=== PATIENT | female | born 1990 | race Caucasian/White ===

== ENCOUNTER 2020-02-15 17:16 | Outpatient (REF) | payer OTHER, SELFPAY | END 2020-02-15 17:17 | disposition home or self-care (01) | LOC: HO.LAB 17:16 | PROVIDERS: Visit Provider Internal Medicine | DX: Z20.828 Contact with and (suspected) exposure to other viral communicable diseases (principal) | CPT/HCPCS: C9803; U0003 ==

== ENCOUNTER 2020-08-31 16:57 | Emergency (ER) | payer SELFPAY ==
[2020-08-31 17:16] VITALS: BP 154/77; PULSE 83; RESP 18; TEMP 36.8; O2SAT 100; BMI 31.3
--- NOTE | 2020-08-31 18:16 | ED_ITS ---
HPI - Skin/Abscess/Foreign Bdy General Chief complaint: Eye Problems Stated complaint: Eye problem Time Seen by Provider: 08/31/20 18:15 Source: patient Mode of arrival: ambulatory Limitations: no limitations History of Present Illness HPI narrative: Otherwise healthy 30-year-old female who denies any past medical or surgical history she reports for the past several weeks she has been having slight bump the rash sometimes on her exposed parts of her arm and forehead and under the eyes. States is this is most notable after she goes to the beach. States she does not use sunscreen. States she has not had any red rash or skin ordaz consistent with sunburn. States there is no other recent illness or fever. There is no or rash. There is no sore throat. There is no recent sick contacts. States the rash will go away at times myself and sometimes with Benadryl. complaint: rash Onset (ago): week(s) Location: face, LUE and RUE Severity: mild Quality: pruritic (Sometimes mildly) Pain Consistency: intermittent Exacerbating factors: other (Some days she goes to the beach) Context: none Associated symptoms: denies other symptoms Related Data Previous Rx's Medication Instructions Recorded loratadine [Claritin] 10 mg PO DAILY #14 tab 08/31/20 Allergies Allergy/AdvReac Type Severity Reaction Status Date / Time floxacillin Allergy Hypertensio Verified 08/31/20 17:15 n Review of Systems Review of Systems: Constitutional: No Weight loss, No Fever, No Chills, No Night Sweats, No Fatigue, No Malaise ENT/Mouth: No Hearing loss, No Ear Pain, No Nasal Congestion, No Sinus Pain, No Hoarseness, No sore throat, No Rhinorrhea, No Swallowing Difficulty Eyes: No Eye Pain, No Swelling, No Redness, No Foreign Body, No Discharge, No Vision Changes Cardiovascular: No Chest Pain, No SOB, No Dyspnea on Exertion, No Orthopnea, No Edema, No Palpitations Respiratory: No Cough, No Sputum, No Wheezing, No Smoke Exposure, No Dyspnea Gastrointestinal: No Nausea, No Vomiting, No Diarrhea, No Constipation, No abdominal Pain, No Hematochezia, No Melena Genitourinary: no irregular bleeding, No Dysuria, No Urinary Frequency, No Hematuria, No Urinary Incontinence, No Urgency, No Flank Pain, No Urinary Flow Changes, No Hesitancy Musculoskeletal: No joint pain, No Myalgias, No Joint Swelling Skin: No Skin Lesions, as noted per HPI Neuro: No Weakness, No Numbness, No Paresthesias, No Loss of Consciousness, No Dizziness, No Headache Psych: No Anxiety/Panic, No Depression, No SI/HI/AH/VH, No Social Issues Heme/Lymph: No Bruising, No Bleeding,No Lymphadenopathy Endocrine: No Polyuria, No Polydipsia, No Temperature Intolerance Yes all other systems are reviewed and are negative [facility] Past Medical History Medical History (Updated 08/31/20 @ 18:18 by Kwadwo Mustafa NP) Anxiety Social History Social History Advance Directives: Yes Advance Directives Information Provided: Yes Advance Directives on File: No Patient : No Physical Exam Vital Signs: Vital Signs: Last Vital Signs Temp 98.3 F 08/31/20 17:16 Pulse 83 08/31/20 17:16 Resp 18 08/31/20 17:16 BP 154/77 H 08/31/20 17:16 Pulse Ox 100 08/31/20 17:16 Body Mass Index 31.3 Reviewed Const: General: cooperative and healthy appearing; No acute distress or intoxicated appearing Nutritional Appearance: average body habitus Orientation/consciousness: patient oriented x3 HENMT: Head: Yes normal to inspection Ears: hearing grossly normal bilaterally Eyes: General: appearance normal, both eyes and all related structures Visual Adams: normal visual adams by confrontation Neck: Neck: Yes normal visual inspection, No positive Brudzinski's sign, No positive Kernig's sign and No tender Thyroid: Thyroid normal Chest: Chest palpation & inspection: normal inspection of the chest Resp: Effort & Inspection: normal respiratory effort Cardio: Jugular venous distension: no JVD Rhythm: regular rhythm Heart sounds: S1 normal heart sound present and S2 normal heart sound present GI: Inspection: Yes normal to inspection Palpation (GI): Soft to palpation Percussion: Yes normal to percussion Auscultation: normal bowel sounds : General: Yes no CVA tenderness Back/Spine/Pelvis: Back: no CVA tenderness Skin: General skin exam: no rashes or lesions noted Rashes: no rashes Neuro: General: patient oriented x3 Extrem: General: Yes normal to inspection Course Course Course Narrative: Essentially no rash at this time. Occurs mostly on days she was to the beach she does apply sunscreen to her daughter which she applies herself sometimes aside from this no other irritants. I educated her on keeping a log of when this rash does occur, keeping picture diary and starting clear 10. She is also educated on worrisome symptoms follow-up and return instructions. Feels comfortable plan. In no acute distress. Stable for discharge. Discharge Plan Discharge Clinical Impression: Dermatitis Patient Disposition: Home, Self-Care Instructions: Dermatitis (ED) Additional Instructions: Avoid any new lotions, perfumes, makeup products or any other cosmetic products. Avoid any new soaps Wash her clothing with warm water Keep a log of when that rash occurs Take Claritin as prescribed Follow-up with her primary care doctor If this continues to bother you you can ask for referral to agricultural extension agent Thank you Prescriptions: New loratadine [Claritin] 10 mg tablet 10 mg PO DAILY Qty: 14 RF: 1 Referrals: Celia Hooks [facility] E[employer] L[facility]ING CONSULTANT [Primary Care Provider] - 1 week
== END 2020-08-31 18:32 | disposition home or self-care (01) ==
PROVIDERS: Emergency Provider Internal Medicine; PCP Nurse Practitioner Family
DX: L30.9 Dermatitis, unspecified (principal)
CPT/HCPCS: 99283; 99284

== ENCOUNTER 2020-11-11 06:24 | Emergency (ER) | payer OTHER, SELFPAY ==
[2020-11-11 06:32] VITALS: BP 148/84; PULSE 104; RESP 18; TEMP 36.9; O2SAT 98; BMI 24.9
--- NOTE | 2020-11-11 06:37 | ED.URI ---
HPI - URI/Sore Throat General Chief Complaint: Upper Respiratory Symptoms Stated Complaint: COVID Time Seen by Provider: 11/11/20 06:29 Source: patient and EMS Mode of arrival: EMS Limitations: no limitations History of Present Illness MD elicited complaint: other (body aches, known COVID as of Thursday, c/o dysuria and hematuria) Onset (ago): day(s) (2) Consistency: constant Severity: mild Able to tolerate fluids by mouth: Yes Exacerbating factors: other (urination) Relieving factors: nothing Associated symptoms: myalgias, cough and dysuria Treatments prior to arrival: none Related Data Previous Rx's Medication Instructions Recorded loratadine 10 mg tablet (Claritin) 10 mg PO DAILY #14 tab 08/31/20 albuterol sulfate 90 mcg/actuation 2 puff INHALATION QID PRN #6.7 g 11/11/20 aerosol inhaler nitrofurantoin 100 mg PO BID 7 Days #14 cap 11/11/20 monohydrate/macrocrystals 100 mg capsule (Macrobid) Allergies Allergy/AdvReac Type Severity Reaction Status Date / Time floxacillin Allergy Hypertensio Verified 08/31/20 17:15 n Review of Systems Review of Systems: Constitutional : No Fever, No Chills ENT/Mouth : No sore throat, No Rhinorrhea Eyes: No Eye Pain, No Swelling, No Redness Cardiovascular : No Chest Pain, No SOB Respiratory : No Cough, No Sputum, No Wheezing Gastrointestinal : No Nausea, No Vomiting, No Diarrhea, No Constipation, No abdominal Pain Genitourinary : pos Dysuria, pos Urinary Frequency, pos Hematuria, Musculoskeletal : No joint pain, No Myalgias, No Joint Swelling Skin : No Skin Lesions, No rash Neuro : No Weakness, No Numbness, No Dizziness, No Headache PMFSH Past Medical History Attestation statement: The following information was validated with the patient. Medical History Anxiety Social History Social History (Updated 11/11/20 @ 07:12 by Lety Wall DO) Patient Tobacco Use Status: Never used Tobacco Use of substances other than those prescribed or required for medical reasons: No Advance Directives: No Advance Directives Information Provided: Yes Patient : No Physical Exam Vital Signs: Vital Signs: Last Vital Signs Temp 98.4 F 11/11/20 06:32 Pulse 104 H 11/11/20 06:32 Resp 18 11/11/20 06:32 BP 148/84 H 11/11/20 06:32 Pulse Ox 98 11/11/20 06:32 Body Mass Index 24.9 Appearance: Alert. Oriented X3. No acute distress. Eyes: Pupils equal, round and reactive to light. ENT: Pharynx normal. Neck: Normal inspection. Neck supple. CVS: Normal heart rate and rhythm. Pulses normal. Respiratory: No respiratory distress. Breath sounds normal. Abdomen: Soft and non-tender. Skin: Skin warm and dry. Normal skin color. Extremities: No lower extremity edema. Neuro: Oriented X 3. No motor deficit. No sensory deficit. MDM - URI/Sore Throat MDM Narrative Medical decision making narrative: 30 yo female with dx of COVID on thursday denies any issues breathing - 98% on RA, hx of asthma as a child will give INH - did give her precautions to return. She c/o dysuria and some mild blood in urine suspect cystitis - will treat with macrobid, no n/v flank pain. Not toxic stable for DC Lab Data Labs: Lab Results 11/11/20 11/11/20 Range/Units 06:43 06:43 Urine Color YELLOW Urine Appearance CLOUDY Urine pH 6.0 (5.0-8.0) Ur Specific [place] 1.025 (1.005-1.025) Urine Protein 2+ H (NEG-TRACE) MG/DL Urine Glucose (UA) NEG (NEG) MG/DL Urine Ketones 5 (NEG) MG/DL Urine Blood 1+ H (NEG) Urine Nitrite NEG (NEG) Ur Leukocyte Esterase NEG (NEG) Urine Test NEGATIVE (NEGATIVE) Discharge Plan Discharge Clinical Impression: COVID-19, Cystitis Patient Disposition: Home, Self-Care Instructions: Urinary Tract Infection in Women (ED), COVID-19 (Coronavirus Disease 2019) (ED) Additional Instructions: return to ED for any worsening symptoms or concerns monitor your breathing and return for any issues Prescriptions: New albuterol sulfate 90 mcg/actuation HFA aerosol inhaler 2 puff inhalation QID PRN (Reason: shortness of breath or wheezing) Qty: 6.7 RF: 0 nitrofurantoin monohyd/m-cryst [Macrobid] 100 mg capsule 100 mg PO BID 7 Days Qty: 14 RF: 0 No Action loratadine [Claritin] 10 mg tablet 10 mg PO DAILY Qty: 14 RF: 1
[2020-11-11 06:55] LABS: Glucose Urine UA NEG (NEG); Leukocyte Esterase Urine NEG (NEG); Nitrite Urine NEG (NEG); Specific Gravity - Urine 1.025 (1.005-1.025); UACC Culture Trigger NO; UPreg QC Valid YES; Urine Blood 1+ (NEG); Urine Ketones 5 MG/DL (NEG); Urine Pregnancy NEGATIVE (NEGATIVE); Urine Protein 2+ MG/DL (NEG-TRACE)
[2020-11-11 06:56] LABS: Appearance Urine CLOUDY; Color Urine YELLOW
[2020-11-11 07:11] LABS: Amorphous Sediment Urine 1+ /LPF; Bacteria Urine 2+ /LPF; Granular Casts Urine 0-2 /LPF; Squamous Epithelial Cell Urine 1+ /LPF; WBC Urine 0 /HPF (0-4)
[2020-11-11 07:24] LABS: COVID-19 Test Positive (Negative); IDNOW Serial# 9DD0AD1C
== END 2020-11-11 08:31 | disposition home or self-care (01) ==
PROVIDERS: Emergency Provider Emergency Medicine; PCP Internal Medicine
DX: U07.1 COVID-19 (principal); R30.0 Dysuria; Z79.899 Other long term (current) drug therapy
CPT/HCPCS: 36415; 81001; 81025; 87635; 99283

== ENCOUNTER 2020-12-07 01:42 | Emergency (ER) | payer OTHER, SELFPAY ==
[2020-12-07 01:59] VITALS: BP 146/91; PULSE 102; RESP 18; TEMP 36.3; O2SAT 100; BMI 32.4
--- NOTE | 2020-12-07 04:00 | PC.NURSE ---
labs drawn to lab.
[2020-12-07 04:28] LABS: MANUAL DIFF FLAG NO
[2020-12-07 04:30] LABS: Basophils Percent Auto 0.7 % (0-2); Eosinophils Absolute Auto 0.1 X10*3/uL (0.0-0.4); Eosinophils Percent Auto 1.5 % (0-4); Hematocrit 36.4 % (37-47); Hemoglobin 12.4 g/dl (12.0-16.0); Imm Gran Abs Auto 0.01 X10*3/uL (0.00-0.03); Imm Gran Pct Auto 0.2 % (0.0-0.4); Lymphocytes Absolute Auto 1.8 X10*3/uL (1.2-4.9); Lymphocytes Percent Auto 34.3 % (20-40); Mean Corpuscular HGB Conc 34.1 g/dl (31.0-35.0); Mean Corpuscular Hemoglobin 29.4 pg (27.0-33.0); Mean Corpuscular Volume 86.3 fL (80-98); Mean Platelet Volume 9.6 fL (9.4-12.3); Monocytes Absolute Auto 0.5 X10*3/uL (0.1-1.2); Monocytes Percent Auto 9.7 % (2-11); Neutrophils Absolute Auto 2.9 X10*3/uL (2.0-8.3); Neutrophils Percent Auto 53.6 % (45-73); Platelet Count 244 X10*3/uL (160-400); Red Blood Count 4.22 X10*6/uL (4.20-5.50); White Blood Count 5.3 X10*3/uL (4.8-10.8)
[2020-12-07 04:36] LABS: Color Urine YELLOW; Glucose Urine UA NEG (NEG); Leukocyte Esterase Urine NEG (NEG); Nitrite Urine NEG (NEG); UACC Culture Trigger NO; Urine Blood 2+ (NEG); Urine Ketones 15 MG/DL (NEG); Urine Protein 1+ MG/DL (NEG-TRACE)
[2020-12-07 04:41] LABS: Appearance Urine HAZY
[2020-12-07 04:45] LABS: Alanine Aminotransferase 11 U/L (0-31); Albumin Level 3.9 g/dL (3.5-5.0); Alkaline Phosphatase 54 U/L (39-117); Anion Gap 12 (12-20); Aspartate Amino Transferase 19 U/L (5-31); Bilirubin Total 0.2 mg/dL (0.0-1.0); Blood Urea Nitrogen 5 mg/dL (9-16); Calcium 8.7 mg/dL (8.4-10.2); Carbon Dioxide 22 mmol/L (22-29); Chloride 108 mmol/L (96-108); Creatinine Clr Calc Pharmacy 93.3; Estimated Glomerular Filt Rate > 60; Glucose Random 96 mg/dL (60-115); Potassium 4.2 mmol/L (3.3-5.1); Sodium 138 mmol/L (135-145); Total Protein 6.7 g/dL (6.5-8.0)
[2020-12-07 05:03] LABS: Urine Pregnancy NEGATIVE (NEGATIVE)
[2020-12-07 05:04] LABS: UPreg QC Valid YES
[2020-12-07 05:07] LABS: Erythrocyte Sedimentation Rate 26 MM/HR (0-20)
[2020-12-07 05:09] LABS: Bacteria Urine 1+ /LPF; Squamous Epithelial Cell Urine 1+ /LPF; WBC Urine 0-2 /HPF (0-4)
[2020-12-07 05:10] LABS: Mucus Urine 3+ /LPF
--- NOTE | 2020-12-07 05:20 | ED_ITS ---
HPI - General Adult General Chief complaint: General Medical Stated complaint: burning on top of head Time Seen by Provider: 12/07/20 02:42 Source: patient Mode of arrival: ambulatory History of Present Illness HPI narrative: 30-year-old female without significant past medical history presents with burning sensation on the top of her head that is associated with pressure but she denies any hearing or visual changes and denies any gait in stability. She states that this has been ongoing for 3-4 days and has not been associated with any fever, chills, neck stiffness and although she did endorse that she has had left arm and neck numbness this is currently being managed by her primary care provider and has not changed in character or pattern. Related Data Previous Rx's Medication Instructions Recorded loratadine 10 mg tablet (Claritin) 10 mg PO DAILY #14 tab 08/31/20 albuterol sulfate 90 mcg/actuation 1 inh INHALATION QID PRN #6.7 g 11/11/20 aerosol inhaler nitrofurantoin 100 mg PO Q12H 7 Days #14 cap 11/11/20 monohydrate/macrocrystals 100 mg capsule (Macrobid) Allergies Allergy/AdvReac Type Severity Reaction Status Date / Time floxacillin Allergy Hypertensio Verified 08/31/20 17:15 n Review of Systems Review of Systems: Pertinent positives and negatives as stated in HPI 10 point review systems is otherwise negative. PMFSH Past Medical History Source: nursing notes reviewed Medical History Anxiety Social History Social History Patient Tobacco Use Status: Never used Tobacco Advance Directives: No Advance Directives Information Provided: Yes Patient : No Physical Exam Vital Signs: Vital Signs: Last Vital Signs Temp 97.3 F 12/07/20 01:59 Pulse 102 H 12/07/20 01:59 Resp 18 12/07/20 01:59 BP 146/91 H 12/07/20 01:59 Pulse Ox 100 12/07/20 01:59 Body Mass Index 32.4 VITAL SIGNS: Reviewed. GENERAL: Well developed, well nourished, in no acute distress. HEAD: Normocephalic/atraumatic, EYES: PERRLA, EOMI intact without pain, no nystagmus EARS: Ext canals without abnormality, TMs non-bulging and non-erythematous NOSE: Nares patent bilateral OROPHARYNX: no oral lesions noted, posterior pharynx clear and non-erythematous without noted tonsillar enlargement/erythema/exudates NECK: Supple, no adenopathy LUNGS: Normal breath sounds. No adventitious sounds or accessory muscle use. SpO2<100> CARDIOVASCULAR: Regular rate and rhythm without noted murmurs ABDOMEN: Soft, non-tender, non-distended with bowel sounds. MUSCULOSKELETAL: No tenderness, deformities, or effusions noted on gross inspection. EXTREMITIES: No cyanosis, clubbing or edema. SKIN: Inspection of the skin reveals no rashes, ulcerations, jaundice, pallor, or petechiae. NEUROLOGIC: Alert and oriented x 4. Strength and sensation to light touch were grossly intact x 4. Course Course Course Narrative: 30-year-old female with history and clinical presentation consistent with symptoms likely associated with her anxiety and on review of all investigations although there is a noted mildly elevated ESR this is not correlating with any evidence of infection and there is no suggestion of a meningitis or shingles. Patient otherwise appears well and was encouraged to follow-up with her primary care provider. Medical Decision Making Lab Data Result diagrams: 12/07/20 04:22 12/07/20 04:22 Labs: Lab Results 12/07/20 12/07/20 12/07/20 Range/Units 04:22 04:22 04:22 WBC 5.3 (4.8-10.8) X10*3/uL RBC 4.22 (4.20-5.50) X10*6/uL Hgb 12.4 (12.0-16.0) g/dl Hct 36.4 L (37-47) % MCV 86.3 (80-98) fL MCH 29.4 (27.0-33.0) pg MCHC 34.1 (31.0-35.0) g/dl RDW 12.0 (11.0-16.0) % Plt Count 244 (160-400) X10*3/uL MPV 9.6 (9.4-12.3) fL Immature Gran % (Auto) 0.2 (0.0-0.4) % Neut % (Auto) 53.6 (45-73) % Lymph % (Auto) 34.3 (20-40) % [place] % (Auto) 9.7 (2-11) % Eos % (Auto) 1.5 (0-4) % Baso % (Auto) 0.7 (0-2) % Lymph # (Auto) 1.8 (1.2-4.9) X10*3/uL [place] # (Auto) 0.5 (0.1-1.2) X10*3/uL Eos # (Auto) 0.1 (0.0-0.4) X10*3/uL Baso # (Auto) 0.0 (0.0-0.2) X10*3/uL Abs Immat Gran (auto) 0.01 (0.00-0.03) X10*3/uL Absolute Neuts (auto) 2.9 (2.0-8.3) X10*3/uL Absolute Nucleated RBC 0.000 (0.0-0.012) X10*3/uL Nucleated RBC % (auto) 0.0 (0.0-0.2) /100WBC ESR (0-20) MM/HR Sodium (135-145) mmol/L Potassium (3.3-5.1) mmol/L Chloride (96-108) mmol/L Carbon Dioxide (22-29) mmol/L Anion Gap (12-20) BUN (9-16) mg/dL Creatinine (0.5-1.4) mg/dL Estim Creat Clear Calc Estimated GFR Random Glucose (60-115) mg/dL Calcium (8.4-10.2) mg/dL Total Bilirubin (0.0-1.0) mg/dL AST (5-31) U/L ALT (0-31) U/L Alkaline Phosphatase (39-117) U/L Total Protein (6.5-8.0) g/dL Albumin (3.5-5.0) g/dL Urine Color YELLOW Urine Appearance HAZY Urine pH 7.0 (5.0-8.0) Ur Specific [place] 1.020 (1.005-1.025) Urine Protein 1+ H (NEG-TRACE) MG/DL Urine Glucose (UA) NEG (NEG) MG/DL Urine Ketones 15 (NEG) MG/DL Urine Blood 2+ H (NEG) Urine Nitrite NEG (NEG) Ur Leukocyte Esterase NEG (NEG) Urine RBC 76-150 H (0) /HPF Urine WBC 0-2 (0-4) /HPF Ur Squamous Epith Cells 1+ /LPF Urine Bacteria 1+ /LPF Urine Mucus 3+ /LPF Urine Test NEGATIVE (NEGATIVE) 12/07/20 12/07/20 Range/Units 04:22 04:22 WBC (4.8-10.8) X10*3/uL RBC (4.20-5.50) X10*6/uL Hgb (12.0-16.0) g/dl Hct (37-47) % MCV (80-98) fL MCH (27.0-33.0) pg MCHC (31.0-35.0) g/dl RDW (11.0-16.0) % Plt Count (160-400) X10*3/uL MPV (9.4-12.3) fL Immature Gran % (Auto) (0.0-0.4) % Neut % (Auto) (45-73) % Lymph % (Auto) (20-40) % [place] % (Auto) (2-11) % Eos % (Auto) (0-4) % Baso % (Auto) (0-2) % Lymph # (Auto) (1.2-4.9) X10*3/uL [place] # (Auto) (0.1-1.2) X10*3/uL Eos # (Auto) (0.0-0.4) X10*3/uL Baso # (Auto) (0.0-0.2) X10*3/uL Abs Immat Gran (auto) (0.00-0.03) X10*3/uL Absolute Neuts (auto) (2.0-8.3) X10*3/uL Absolute Nucleated RBC (0.0-0.012) X10*3/uL Nucleated RBC % (auto) (0.0-0.2) /100WBC ESR 26 H (0-20) MM/HR Sodium 138 (135-145) mmol/L Potassium 4.2 (3.3-5.1) mmol/L Chloride 108 (96-108) mmol/L Carbon Dioxide 22 (22-29) mmol/L Anion Gap 12 (12-20) BUN 5 L (9-16) mg/dL Creatinine 0.78 (0.5-1.4) mg/dL Estim Creat Clear Calc 93.3 Estimated GFR > 60 Random Glucose 96 (60-115) mg/dL Calcium 8.7 (8.4-10.2) mg/dL Total Bilirubin 0.2 (0.0-1.0) mg/dL AST 19 (5-31) U/L ALT 11 (0-31) U/L Alkaline Phosphatase 54 (39-117) U/L Total Protein 6.7 (6.5-8.0) g/dL Albumin 3.9 (3.5-5.0) g/dL Urine Color Urine Appearance Urine pH (5.0-8.0) Ur Specific [place] (1.005-1.025) Urine Protein (NEG-TRACE) MG/DL Urine Glucose (UA) (NEG) MG/DL Urine Ketones (NEG) MG/DL Urine Blood (NEG) Urine Nitrite (NEG) Ur Leukocyte Esterase (NEG) Urine RBC (0) /HPF Urine WBC (0-4) /HPF Ur Squamous Epith Cells /LPF Urine Bacteria /LPF Urine Mucus /LPF Urine Test (NEGATIVE) Discharge Plan Discharge Clinical Impression: Scalp irritation Patient Disposition: Home, Self-Care Instructions: Anxiety (ED) Additional Instructions: 1. Resume all home medications as prescribed. 2. Please follow-up with your primary care provider for further evaluation regarding your scalp symptoms and further management your chronic condition. Return to the ER for acute worsening of your symptoms. Prescriptions: No Action loratadine [Claritin] 10 mg tablet 10 mg PO DAILY Qty: 14 RF: 1 nitrofurantoin monohyd/m-cryst [Macrobid] 100 mg capsule 100 mg PO Q12H 7 Days Qty: 14 RF: 0 albuterol sulfate 90 mcg/actuation HFA aerosol inhaler 1 inh inhalation QID PRN (Reason: shortness of breath or wheezing) Qty: 6.7 RF: 0
== END 2020-12-07 06:06 | disposition home or self-care (01) ==
PROVIDERS: Emergency Provider Student in an Organized Health Care Education/Training Program; PCP Nurse Practitioner Family
DX: L29.9 Pruritus, unspecified (principal); F41.9 Anxiety disorder, unspecified; Z79.899 Other long term (current) drug therapy
CPT/HCPCS: 36415; 80053; 81001; 81025; 85025; 85652; 99283

== ENCOUNTER 2020-12-24 20:55 | Emergency (ER) | payer OTHER, SELFPAY ==
[2020-12-24 21:34] VITALS: BP 155/84; PULSE 98; RESP 18; TEMP 36.4; O2SAT 97; BMI 37.8
== END 2020-12-24 22:15 | disposition left against medical advice (07) ==
LOC: HO.ED 22:11
PROVIDERS: Emergency Provider Emergency Medicine
DX: M79.602 Pain in left arm (principal); R51.9 Headache, unspecified
CPT/HCPCS: 99281; 99282

== ENCOUNTER 2021-06-23 21:21 | Emergency (ER) | payer OTHER, SELFPAY ==
[2021-06-23 22:22] VITALS: BP 150/92; PULSE 100; RESP 16; TEMP 36.2; O2SAT 99; BMI 32.3
--- NOTE | 2021-06-23 22:52 | PC.NURSE ---
assisted provider in exam of area of concern for patient . no signs and symptoms of infection noted by provider . area appears to be blackhead . plan of care is to follow up with her primary .
--- NOTE | 2021-06-23 23:05 | ED_ITS ---
HPI - Skin/Abscess/Foreign Bdy General Chief complaint: Skin/Abscess/Foreign Body Stated complaint: abscess on right breast Time Seen by Provider: 06/23/21 23:05 Source: patient Mode of arrival: ambulatory History of Present Illness HPI narrative: 31-year-old female without significant past medical history presents with concerns about a ?mole that she has had for approximately 1 year and is concerned because she is noted skin changes. She then reports that she has been able to express material from the area but that it ?came right back?. She denies any associated fever, chills, family history of breast cancer. Related Data Previous Rx's Medication Instructions Recorded loratadine 10 mg tablet (Claritin) 10 mg PO DAILY #14 tab 08/31/20 albuterol sulfate 90 mcg/actuation 1 inh INHALATION QID PRN #6.7 g 11/11/20 aerosol inhaler nitrofurantoin 100 mg PO Q12H 7 Days #14 cap 11/11/20 monohydrate/macrocrystals 100 mg capsule (Macrobid) Allergies Allergy/AdvReac Type Severity Reaction Status Date / Time fluoxetine AdvReac Hypertensio Verified 06/23/21 22:21 n Review of Systems Review of Systems: Pertinent positives and negatives as stated in HPI 10 point review of systems is otherwise negative. PMFSH Past Medical History Source: nursing notes reviewed Medical History Anxiety Social History Social History Patient Tobacco Use Status: Never used Tobacco Advance Directives: No Patient : No Physical Exam Vital Signs: Vital Signs: Last Vital Signs Temp 97.2 F 06/23/21 22:22 Pulse 100 06/23/21 22:22 Resp 16 06/23/21 22:22 BP 150/92 H 06/23/21 22:22 Pulse Ox 99 06/23/21 22:22 BMI result Body Mass Index 32.3 VITAL SIGNS: Reviewed. GENERAL: Well developed, well nourished, in no acute distress. HEAD: Normocephalic/atraumatic EYES: PERRLA, EOMI LUNGS: Normal breath sounds. SpO2<99> BREAST: [employer] [[place]] appears to be black head to medial aspect of right breast with trace erythema CARDIOVASCULAR: Regular rate and rhythm without noted murmurs ABDOMEN: Soft, non-tender, non-distended with bowel sounds. No rigidity. No guarding. No palpable masses or hernias noted NEUROLOGIC: Alert and oriented x 4. Course Course Course Narrative: 31-year-old female with history and clinical presentation consistent with a common blackhead to the medial aspect of the right breast as evidence by her reported history of having expressed material previously and then stating that the material had returned. Patient was reassured but also encouraged to follow- up with her primary care provider if she had any further concerns. Patient was relieved and is otherwise discharged home in stable condition. Discharge Plan Discharge Clinical Impression: Open comedone Patient Disposition: Home, Self-Care Additional Instructions: 1. You have a blackhead, or otherwise known as open comedone, but you are encouraged to follow-up with your primary care provider should you continue to have concerns regarding the area. Do not hesitate to return to the ER for any worsening symptoms. Prescriptions: No Action loratadine [Claritin] 10 mg tablet 10 mg PO DAILY Qty: 14 1RF nitrofurantoin monohyd/m-cryst [Macrobid] 100 mg capsule 100 mg PO Q12H 7 Days Qty: 14 0RF Rx Instructions: must administer with a meal/food albuterol sulfate 90 mcg/actuation HFA aerosol inhaler 1 inh inhalation QID PRN (Reason: shortness of breath or wheezing) Qty: 6.7 0RF
== END 2021-06-23 23:48 | disposition home or self-care (01) ==
PROVIDERS: Emergency Provider Student in an Organized Health Care Education/Training Program
DX: L70.0 Acne vulgaris (principal)
CPT/HCPCS: 99282; 99283

== ENCOUNTER 2021-07-17 00:37 | Emergency (ER) | payer OTHER, SELFPAY ==
--- NOTE | 2021-07-17 | ECG_ITS ---
Test Reason : CP Blood Pressure : / mmHG Vent. Rate : 124 BPM Atrial Rate : 124 BPM P-R Int : 156 ms QRS Dur : 070 ms QT Int : 302 ms P-R-T Axes : 054 041 009 degrees QTc Int : 433 ms Sinus tachycardia Otherwise normal ECG No previous ECGs available Referred By: Generic ED Physician Electronically Signed By:ARLEEN BUENO MD
[2021-07-17 00:50] VITALS: BP 150/89; PULSE 110; RESP 18; TEMP 37.2; O2SAT 100; BMI 32.3
--- NOTE | 2021-07-17 01:08 | ED.GENADULT ---
HPI - General Adult General Chief complaint: Upper Respiratory Symptoms Stated complaint: cough, chest pain, congestion Time Seen by Provider: 07/17/21 00:55 Source: patient Mode of arrival: ambulatory Limitations: no limitations History of Present Illness HPI narrative: Patient is a 31 year old female presenting to the emergency department today with a cough and chest pain secondary to coughing. Patient states that for the last week, she has felt generally unwell with coughing and has been having pain with the cough. Patient denies any dizziness, lightheadedness, abdominal pain, nausea, vomiting, fever, chills, blurry vision, double vision, loss of vision, difficulty breathing, shortness of breath, back pain, night sweats, pain with urination, increased urinary frequency, increased urinary urgency, blood in her urine or stool, syncope or a near syncopal episode, recent trauma or falls, bowel incontinence, bladder incontinence, bowel retention, bladder retention, or any other complaints at this time. Onset (ago): week(s) (1) Treatments prior to arrival: none Related Data Previous Rx's Medication Instructions Recorded loratadine 10 mg tablet (Claritin) 10 mg PO DAILY #14 tab 08/31/20 albuterol sulfate 90 mcg/actuation 1 inh INHALATION QID PRN #6.7 g 11/11/20 aerosol inhaler nitrofurantoin 100 mg PO Q12H 7 Days #14 cap 11/11/20 monohydrate/macrocrystals 100 mg capsule (Macrobid) Allergies Allergy/AdvReac Type Severity Reaction Status Date / Time fluoxetine AdvReac Hypertensio Verified 06/23/21 22:21 n Review of Systems Constitutional: Constitutional: Reports no additional constitutional complaints, Denies chills, Denies fever(s) and Denies night sweats Eyes: Eyes: Reports no additional eye complaints, Denies blurry vision, Denies change in vision, Denies diplopia, Denies eye discharge, Denies loss of vision and Denies eye pain ENT: Denies dizziness Cardiovascular: Cardiovascular: Reports no additional cardiovascular complaints, Denies lightheadedness, Denies Loss of Consciousness and Denies dyspnea Respiratory: Respiratory: Reports no additional respiratory complaints, Reports cough and Denies dyspnea Gastrointestinal: Gastrointestinal: Reports no additional gastrointestinal complaints, Denies abdominal pain, Denies melena, Denies hematochezia, Denies change in bowel habits and Denies change in stool character Genitourinary: Genitourinary: Denies hematuria, Denies urinary frequency, Denies dysuria, Denies urinary incontinence, Denies urinary hesitancy and Denies urinary urgency Musculoskeletal: Musculoskeletal: Reports no additional musculoskeletal complaints, Denies numbness and Denies tingling Neurologic: Denies dizziness, Denies loss of vision, Denies numbness and Denies tingling Psychiatric: Psychiatric: Reports no additional psychiatric complaints Endocrine: Endocrine: Reports no additional endocrine complaints Hematologic/Lymphatic: Hematologic/Lymphatic: Reports no additional hematologic/lymphatic complaints Allergic/Immunologic: Allergic/Immunologic: Reports no additional allergic/immunologic complaints [facility] Past Medical History Attestation statement: The following information was validated with the patient. Source: old records reviewed Medical History Anxiety Social History Social History Patient Tobacco Use Status: Never used Tobacco Advance Directives: No Patient : No Physical Exam ED Vital Signs: Vital Signs - 24 hr 07/17/21 00:50 Temperature 98.9 F Pulse Rate 110 H Respiratory Rate 18 Blood Pressure 150/89 H Pulse Oximetry 100 BMI result Body Mass Index 32.3 Const General: cooperative, no acute distress, alert and awake Nutritional Appearance: well nourished Orientation/consciousness: patient oriented x3 Limitations: no limitations HENMT Head: Yes normal to inspection and Yes atraumatic Ears: hearing grossly normal bilaterally and external ears normal General nose exam: Normal external nose present, no nasal discharge noted and no epistaxis Face and sinus: Yes normal facial exam, No abrasion and No laceration Mouth: Normal oral and palatal mucosa present, no drooling and no muffled voice Eyes General: appearance normal, both eyes and all related structures Periorbital: periorbital findings normal Eyelids: Yes eyelids normal Conjunctivae: conjunctivae normal Pupils: Equal, round and reactive pupils present EOM: EOMs intact bilaterally Neck Neck: Yes normal visual inspection, Yes full ROM and Yes no lymphadenopathy Chest Chest palpation & inspection: normal inspection of the chest Resp Effort & Inspection: normal respiratory effort and able to speak in complete sentences Auscultation: clear to auscultation bilaterally Cardio Rate: regular rate Rhythm: regular rhythm GI Inspection: Yes normal to inspection Neuro General: patient oriented x3 and moves all extremities Cranial nerves: Yes Equal, round and reactive pupils present Cognition (Neuro): normal cognition Motor exam (neuro): 5/5 motor strength present throughout Sensory Exam: Normal double simultaneous stimulation for sensation Coordination: [id number] test normal Extrem General: Yes normal to inspection, Yes full ROM and Yes capillary refill normal Psych Appearance: grossly normal Mental Status: mental status grossly normal Affect: normal affect Attitude: cooperative Thought process: Normal thought process present Thought content: Normal thought content present Insight: Good insight present (Psych) Medical Decision Making MDM Narrative Medical decision making narrative: Patient is a 31 year old female presenting to the emergency department today with a cough. Patient's physical exam was unremarkable. Patient's rapid COVID-19 test was positiveI explained my physical exam findings as well as all test results to the patient. I answered all questions asked by the patient.I stressed the importance of the patient taking her medication as prescribed. I stressed the importance of the patient following up with her primary care provider. I stressed the importance of the patient returning to the emergency department immediately if her symptoms were to worsen or if she were to develop any dizziness, shortness of breath, difficulty breathing, chest pain, blurry vision, loss of vision, nausea, vomiting, abdominal pain, fever, chills, back pain, or any other complaints. Patient verbalized agreement and understanding with this treatment plan and discharge. Differential Diagnosis Differential Diagnosis: COVID-19, cough Medical Records Medical records reviewed: Yes I reviewed the patient's medical records. Lab Data Lab results reviewed: Yes I reviewed the patient's lab results. Labs: Lab Results 07/17/21 Range/Units 00:52 COVID-19 ([facility]) Positive A (Negative) COVID-19 Clin Com See Note Discharge Plan Discharge Clinical Impression: COVID-19 Patient Disposition: Home, Self-Care Instructions: COVID-19 (Coronavirus Disease 2019) (ED) Additional Instructions: Follow up with your primary care provider. Return to the emergency department immediately if your symptoms worsen or if you develop any dizziness, shortness of breath, difficulty breathing, chest pain, blurry vision, loss of vision, nausea, vomiting, abdominal pain, fever, chills, back pain, or any other complaints. Prescriptions: No Action loratadine [Claritin] 10 mg tablet 10 mg PO DAILY Qty: 14 1RF nitrofurantoin monohyd/m-cryst [Macrobid] 100 mg capsule 100 mg PO Q12H 7 Days Qty: 14 0RF Rx Instructions: must administer with a meal/food albuterol sulfate 90 mcg/actuation HFA aerosol inhaler 1 inh inhalation QID PRN (Reason: shortness of breath or wheezing) Qty: 6.7 0RF Stand Alone Forms: Work/School Release Print Language: Togolese
[2021-07-17 01:10] LABS: COVID-19 Test Positive (Negative)
[2021-07-17 01:14] LABS: IDNOW Serial# 16C4AD1C; Influenza A Negative (Negative); Influenza B2 Negative (Negative)
[2021-07-17 01:15] VITALS: BP 146/92; PULSE 112; RESP 16; O2SAT 100
== END 2021-07-17 01:21 | disposition home or self-care (01) ==
PROVIDERS: Emergency Provider Emergency Medicine
DX: U07.1 COVID-19 (principal); R05.9 Cough, unspecified; R07.89 Other chest pain; Z79.899 Other long term (current) drug therapy
CPT/HCPCS: 87502; 87635; 93005; 99283; 99284

== ENCOUNTER 2021-07-17 13:11 | Emergency (ER) | payer OTHER, SELFPAY ==
[2021-07-17 13:51] VITALS: BP 148/87; PULSE 100; RESP 18; TEMP 36.2; O2SAT 100; BMI 32.3
[2021-07-17] MEDS: hydrOXYzine HCL 25 MG TABLET PO (15:24)
--- NOTE | 2021-07-17 15:26 | ED_ITS ---
HPI - Anxiety General Chief Complaint: Anxiety Stated Complaint: anxiety Time Seen by Provider: 07/17/21 15:11 Source: patient Mode of arrival: ambulatory History of Present Illness HPI narrative: 31-year-old female with past medical history of COVID-19 positive as of this morning, anxiety, presenting to the ED complaining of increased anxiety x2 weeks. Admits has been prescribed if you do for medications in the past without relief. Reports anxiety/panic attacks have been increasing. Denies CP/SOB, new or worsening symptoms of COVID MD complaint: anxiety Onset (ago): week(s) Related Data Previous Rx's Medication Instructions Recorded loratadine 10 mg tablet (Claritin) 10 mg PO DAILY #14 tab 08/31/20 albuterol sulfate 90 mcg/actuation 1 inh INHALATION QID PRN #6.7 g 11/11/20 aerosol inhaler nitrofurantoin 100 mg PO Q12H 7 Days #14 cap 11/11/20 monohydrate/macrocrystals 100 mg capsule (Macrobid) hydroxyzine HCl 25 mg tablet 25 mg PO TID PRN 3 Days #5 tab 07/17/21 Allergies Allergy/AdvReac Type Severity Reaction Status Date / Time fluoxetine AdvReac Hypertensio Verified 06/23/21 22:21 n Review of Systems Review of Systems: Constitutional: No Fever, No Chills, No Fatigue, No Malaise ENT/Mouth:No Ear Pain, No Nasal Congestion, No sore throat, No Rhinorrhea, No Swallowing Difficulty Eyes: No Eye Pain, No Swelling, No Redness Cardiovascular: No Chest Pain, No SOB, No Palpitations Respiratory: No Cough, No Sputum, No Dyspnea Gastrointestinal: No Nausea, No Vomiting, No Diarrhea, No Constipation, No Abdominal pain Musculoskeletal: No joint pain, No Myalgias, No Joint Swelling Skin: No Skin Lesions, No rash Neuro: No Weakness, No Dizziness, No Headache Psych: + Anxiety/Panic, No Depression, No SI/HI/AH/VH Yes all other systems are reviewed and are negative [facility] Past Medical History Attestation statement: The following information was validated with the patient. Medical History Anxiety Social History Social History Alcohol intake: current Alcohol intake frequency: holidays/special occasions only Patient Tobacco Use Status: Never used Tobacco Advance Directives: No Advance Directives Information Provided: No Physical Exam Vital Signs: Vital Signs: Last Vital Signs Temp 97.1 F 07/17/21 13:51 Pulse 100 07/17/21 13:51 Resp 18 07/17/21 13:51 BP 148/87 H 07/17/21 13:51 Pulse Ox 100 07/17/21 13:51 BMI result Body Mass Index 32.3 Const: General: cooperative, healthy appearing, no acute distress, alert and awake Orientation/consciousness: patient oriented x3 Limitations: no limitations HEENT: Head: Yes normal to inspection and Yes atraumatic Ears: hearing grossly normal bilaterally General nose exam: Normal external nose present Face and sinus: Yes normal facial exam Eyes: General: appearance normal, both eyes and all related structures EOM: EOMs intact bilaterally Neck: Neck: Yes normal visual inspection and Yes no meningeal signs Resp: Effort & Inspection: normal respiratory effort and no respiratory distress Auscultation: clear to auscultation bilaterally Cardio: Rate: regular rate Skin: Rashes: no rashes Wounds: no wounds Neuro: General: patient oriented x3, tone normal and no meningeal signs Gait exam (Neuro): Normal gait present Extrem: General: Yes normal to inspection MDM - Anxiety MDM Narrative Medical decision making narrative: 31-year-old female with past medical history of COVID-19 positive as of this morning, anxiety, presenting to the ED complaining of increased anxiety x2 weeks. On exam HR of 100 likely from anxiety, NAD/nontoxic appearing, concern for increased anxiety/panic attacks. Will give patient p.o. hydroxyzine, discussed that she needs to follow-up with PCP however will give her short course of Atarax for home. She verbalized understanding Differential Diagnosis Differential diagnosis: Likely panic disorder and acute anxiety Medical Records Attestation: I reviewed the patient's medical records. Lab Data Attestation: I reviewed the patient's lab results. Discharge Plan Discharge Clinical Impression: Acute anxiety Patient Disposition: Home, Self-Care Instructions: Anxiety (ED) Additional Instructions: Hydroxyzine isn't anti anxiety medication, take as needed. It is very important for you to follow-up with her providers/prescriber for further medication herminia mmendations and refills. If you have thoughts of hurting herself or others please return to the emergency department. You have COVID At this time you will be okay for discharge. Please self isolate for 10-14 days. Do not expose yourself to others. You may not go to work or school. Please continue to follow cold instructions and wash your hands frequently. You may take Tylenol / Motrin as directed on the bottle for pain or fever. If you have constant or persistent shortness of breath, fever unresolved with medications, chest pain, or your unable to eat or drink please return to the ED CDC Guidelines for home isolation: - Stay away from others - WEAR A MASK if you are sick AND STAY HOME - Cover your mouth and nose with a tissue when you cough or sneeze. Dispose of tissues in a lined trash can and wash your hands immediately with soap and water for at least 20 seconds. If soap and water are not available, clean hands with alcohol-based hand media services coordinator that contains at least 60% alcohol. - Clean your hands often with soap and water for at least 20 seconds - Avoid touching your eyes, nose and mouth with unwashed hands - Do not share dishes, drinking glasses, cups, eating utensils, towels, or bedding with other people in your home. After using these items, wash them thoroughly with soap and water or put in the munitions handler supervisor. - Clean high-touch surfaces in your isolation area ( sick room and bathroom) every day; let a caregiver clean and disinfect high-touch surfaces in other areas of the home. Clean the area or item with soap and water or another detergent if it is dirty. Then, use a household disinfectant. - Limit contact with pets and animals: If you must care for a pet, wash your hands before and after interacting with them) Prescriptions: New hydroxyzine HCl 25 mg tablet 25 mg PO TID PRN (Reason: anxiety) 3 Days Qty: 5 0RF No Action loratadine [Claritin] 10 mg tablet 10 mg PO DAILY Qty: 14 1RF nitrofurantoin monohyd/m-cryst [Macrobid] 100 mg capsule 100 mg PO Q12H 7 Days Qty: 14 0RF Rx Instructions: must administer with a meal/food albuterol sulfate 90 mcg/actuation HFA aerosol inhaler 1 inh inhalation QID PRN (Reason: shortness of breath or wheezing) Qty: 6.7 0RF Referrals: Physician,Unknown J [Primary Care Provider] -
== END 2021-07-17 15:42 | disposition home or self-care (01) ==
PROVIDERS: Emergency Provider Emergency Medicine
DX: F41.1 Generalized anxiety disorder (principal); Z79.899 Other long term (current) drug therapy
CPT/HCPCS: 99283

== ENCOUNTER 2021-08-03 12:27 | Emergency (ER) | payer OTHER, SELFPAY ==
[2021-08-03 12:29] VITALS: BP 148/89; PULSE 105; RESP 18; TEMP 36.6; O2SAT 100; BMI 32.3
--- NOTE | 2021-08-03 13:52 | ED_ITS ---
HPI - Anxiety General Chief Complaint: Anxiety Stated Complaint: Numbness Tingling Throughout Body Time Seen by Provider: 08/03/21 13:42 Source: patient and old records reviewed Mode of arrival: ambulatory Limitations: no limitations History of Present Illness MD complaint: anxiety Onset (ago): year(s) Symptoms: palpitations, extremity numbness/tingling, perioral numbness/tingling and sense of impending doom Severity: moderate Quality: intermittent Place: home and work History of similar episodes: Yes Provoking factors: none known Relieving factors: medication (atarax does help - she is too scared to take venlafaxine as prescribed prior HTN to fluoxetine) Exacerbating factors: nothing Associated symptoms: palpitations, headaches and weakness Related Data Previous Rx's Medication Instructions Recorded loratadine 10 mg tablet (Claritin) 10 mg PO DAILY #14 tab 08/31/20 albuterol sulfate 90 mcg/actuation 1 inh INHALATION QID PRN #6.7 g 11/11/20 aerosol inhaler nitrofurantoin 100 mg PO Q12H 7 Days #14 cap 11/11/20 monohydrate/macrocrystals 100 mg capsule (Macrobid) hydroxyzine HCl 25 mg tablet 25 mg PO TID PRN 3 Days #5 tab 07/17/21 Allergies Allergy/AdvReac Type Severity Reaction Status Date / Time fluoxetine AdvReac Hypertensio Verified 06/23/21 22:21 n Review of Systems Review of Systems: Constitutional : No Fever, No Chills ENT/Mouth : No Ear Pain, No Nasal Congestion, No sore throat Eyes: No Eye Pain, No Swelling, No Redness Cardiovascular : No Chest Pain, No SOB Respiratory : No Cough, No Sputum, No Dyspnea Gastrointestinal : No Nausea, No Vomiting, No Diarrhea, No Hematochezia, No Melena Genitourinary : No Dysuria, No Urinary Frequency, No Hematuria Musculoskeletal : No Myalgias Skin : No Skin Lesions, No rash Neuro : No Weakness, pos Numbness, pos Paresthesias, No Dizziness, No Headache Psych : positive Anxiety, positive Depression, no SI/HI Heme/Lymph: No Lymphadenopathy Endocrine : No Polyuria, No Polydipsia All other systems reviewed and are negative [facility] Past Medical History Attestation statement: The following information was validated with the patient. Medical History Anxiety Social History Social History Alcohol intake: current Alcohol intake frequency: holidays/special occasions only Patient Tobacco Use Status: Never used Tobacco Advance Directives: No Advance Directives Information Provided: No Physical Exam Vital Signs: Vital Signs: Last Vital Signs Temp 97.8 F 08/03/21 12:29 Pulse 94 08/03/21 14:54 Resp 18 08/03/21 14:54 BP 148/89 H 08/03/21 12:29 Pulse Ox 100 08/03/21 14:54 BMI result Body Mass Index 32.3 Appearance: Alert. Oriented X3. No acute distress. anxious Eyes: Pupils equal, round and reactive to light. ENT: Pharynx normal. Neck: Normal inspection. Neck supple. CVS: Normal heart rate and rhythm. Pulses normal. Respiratory: No respiratory distress. Breath sounds normal. Abdomen: Soft and non-tender. Skin: Skin warm and dry. Normal skin color. Normal skin turgor. Extremities: No lower extremity edema. No calf ttp Neuro: Oriented X 3. No motor deficit. No sensory deficit. Course Course Course Narrative: no reaction to venlafaxine can be DC home MDM - Anxiety MDM Narrative Medical decision making narrative: 31 yo femael wit hx of asthma, allergies, anxiety - here with c/o anxiety again with whole body numbness and feeling of doom - at this time will obtain labs, she wants to trial venlafaxine in the ED while she can be monitored. Her PCP has set her up with therapy she is waiting for a call back. This has been going on for 10 years. Has Rx at home. Discharge Plan Discharge Clinical Impression: Acute anxiety Patient Disposition: Home, Self-Care Instructions: Anxiety (ED) Additional Instructions: return to ED for any worsening symptoms or concerns please take your venlafaxine and follow up with your primary care doctor given dose in emergency department today on 08/03 Prescriptions: No Action loratadine [Claritin] 10 mg tablet 10 mg PO DAILY Qty: 14 1RF nitrofurantoin monohyd/m-cryst [Macrobid] 100 mg capsule 100 mg PO Q12H 7 Days Qty: 14 0RF Rx Instructions: must administer with a meal/food albuterol sulfate 90 mcg/actuation HFA aerosol inhaler 1 inh inhalation QID PRN (Reason: shortness of breath or wheezing) Qty: 6.7 0RF hydroxyzine HCl 25 mg tablet 25 mg PO TID PRN (Reason: anxiety) 3 Days Qty: 5 0RF Interventions: ED Discharge Assessment Last Done: 08/03/21 15:12 Discharge Date/Time: 08/03/21 15:12
[2021-08-03] MEDS: Venlafaxine HCl ER 37.5 MG CAP.ER.24H PO (14:12)
[2021-08-03 14:54] VITALS: PULSE 94; RESP 18; O2SAT 100
--- NOTE | 2021-08-03 14:54 | PC.NURSE ---
NO NEGATIVE SIDE EFFECTS FROM EFFEXOR NOTED. NO DIFF BREATHING, NO RASH, NO OTHER COMPLANTS AT THIS TIME.
== END 2021-08-03 15:12 | disposition home or self-care (01) ==
PROVIDERS: Emergency Provider Emergency Medicine
DX: F41.1 Generalized anxiety disorder (principal); R00.2 Palpitations; R51.9 Headache, unspecified; Z79.899 Other long term (current) drug therapy
CPT/HCPCS: 99283